=== PATIENT | male | born 1970 | race Hispanic/Latino ===

== ENCOUNTER 2022-01-21 10:11 | Day surgery (SDC) | payer OTHER ==
[2022-01-21] MEDS ORDERED: LACTATED RINGERS 1,000 ML ONE ×2 (10:33→14:15)
[2022-01-21] MEDS ORDERED: ONDANSETRON 4 MG/2 ML INJ IV PRN (10:55)
[2022-01-21] MEDS ORDERED: HYDROmorphone 0.5 MG/0.5 ML INJ IV PRN (10:55)
--- NOTE | 2022-01-21 10:57 | Anesthesia Day of Surgery ---
Anesthesia Day of Surgery - Day of Surgery Patient Examined: Yes Patient H&P Reviewed: Yes Patient is NPO: Yes
--- NOTE | 2022-01-21 10:58 | Anesthesia Consultation ---
Anesthesia Consult and Med Hx Date of service: 01/21/22 - Airway Anesthetic Teeth Evaluation: Chipped ROM Head & Neck: Adequate Mental/Hyoid Distance: Adequate Mallampati Class: Class III Intubation Access Assessment: Possibly Difficult - Pre-Operative Health Status ASA Pre-Surgery Classification: ASA1 Proposed Anesthetic Plan: General - Pulmonary Hx Smoking: No Hx Sleep Apnea: No - Central Nervous System Hx Back Pain: Yes (Mild scoliosis) Hx Psychiatric Problems: No - Gastrointestinal Hx Gastroesophageal Reflux Disease: Yes (Occasional dietary) - Other Systems Hx Alcohol Use: Yes (Occas) Hx Cancer: No
[2022-01-21] MEDS ORDERED: MIDAZOLAM 2 MG/2 ML INJ IV NR (11:00)
[2022-01-21] MEDS ORDERED: LACTATED RINGERS 1,000 ML IV SCH (11:00)
[2022-01-21] MEDS ORDERED: ceFAZolin/Water 2 GM/20 ML 2 GM/20 ML SYRINGE IV ONE (11:54)
[2022-01-21] MEDS ORDERED: ceFAZolin/STERILE WATER 2 GM/20 ML SYRINGE IV NR (12:00)
[2022-01-21] MEDS ORDERED: BUPIVACAINE/PF (0.25%) 2.5 MG/ML 30 ML VIAL INFILTRATI ONE (12:13)
[2022-01-21] MEDS ORDERED: LIDOCAINE (1%) 10 MG/1 ML VIAL 20 ML MDV ONE (12:13)
[2022-01-21] MEDS ORDERED: LIDOCAINE MPF (2%) 20 MG/1 ML VIAL 5 ML ONE (12:19)
[2022-01-21] MEDS ORDERED: propofoL 200 MG/20 ML VIAL IV ONE (12:20)
[2022-01-21] MEDS ORDERED: HYDROmorphone 1 MG/1 ML INJ ONE (12:32)
[2022-01-21] MEDS ORDERED: dexAMETHasone 20 MG/5 ML VIAL ONE (12:45)
[2022-01-21] MEDS ORDERED: SODIUM CHLORIDE 0.9% IRR 1,500 ML BOTTLE IR ONE (14:00)
--- NOTE | 2022-01-21 14:11 | Post Operative Note ---
Date of procedure: 01/21/22 Pre-op diagnosis: bialt hydroceles sterilization Post-op diagnosis: same Findings: fluid bilat Procedure: bilat hydrocelectomy vasectomy Anesthesia: GETA Surgeon: JASMIN NO Estimated blood loss: minimal Pathology: list (sacs vasa) Specimen disposition: to lab Condition: stable Disposition: PACU
--- NOTE | 2022-01-21 14:13 | Discharge Summary ---
Short Stay Discharge Plan Activity: other (no lifting or straining ) Weight Bearing Status: Partial Weight Bearing Diet: low fat, low cholesterol, low salt Wound: open to air Special Instructions: other (ice x 24 hrs ) Follow up with: PRIMARY CARE, [Primary Care Provider] - 7 Days JASMIN NO MD [Staff Physician] - 01/22/22
[2022-01-21] MEDS: HYDROmorphone 0.5 MG/0.5 ML INJ IV PRN ×2 (14:58→15:18)
--- NOTE | 2022-01-21 17:16 | Post Anesthesia Evaluation ---
- Post Anesthesia Evaluation Patient Participated: Yes Airway Patent: Yes Stable Respiratory Function: Yes Nausea/Vomiting: No Temp > 96.8F: Yes Pain Manageable: Yes Adequeate Hydration: Yes Anesthesia Complications: No Block Receding Appropriately: Not Applicable Patient on Ventilator: No
--- NOTE | 2022-01-21 18:07 | Operative Report ---
DATE OF SURGERY: 01/21/2022 PREOPERATIVE DIAGNOSIS: Bilateral hydroceles. POSTOPERATIVE DIAGNOSIS: Bilateral hydroceles. PROCEDURES: Bilateral hydrocelectomies and vasectomy. SURGEON: Dr. Cervantes. ANESTHESIA: General. FINDINGS: This is a gentleman who had a very large hydrocele/spermatocele on right side, now presents for treatment. He wanted bilateral vasectomies that we have consent beforehand. We told him we would attempt to do it at the same time. DESCRIPTION OF PROCEDURE: The patient was brought to the operating room and placed on the operating table. Following induction of anesthesia, placed in supine position, prepped and draped in usual sterile fashion. An oblique incision made over the right hemiscrotum towards the midline. The fascia was thickened and was delivered. Approximately 90 mL of clear fluid was evacuated. The testis was slightly atrophic, approximately 3 cm. Portion of the sac was removed and this was imbricated. Any small bleeders were cauterized or tied as needed. At this point, the vas was easily identified. The cord was not thickened and the vasectomy was carried out. The vas was divided. Specimen sent to pathology and both sides were cauterized and oversewn. On the left side, there was some fluid. We tried to do the vasectomy without opening up any of the tunica but the cord was so thickened. There was also some fluid in the tunica and/or surrounding the testis. We therefore just extended the incision for maybe a half a cm and exposed the testis and evacuated approximately 40 mL of fluid. This was clear. Even was open, the cord was still thickened, we dissected it free, isolated, doubly tied and cauterized and oversewn and the patient tolerated the procedure well. Both testes were placed in anatomical positions. Two 1/4 inch Walt was placed on the left, one on the right were carried out, secured with silk. Fascia was closed with 3-0 chromic, skin with 3-0 chromic. The patient tolerated the procedure well and brought to recovery in stable condition. TID: [id number] RECEIPT: [id number] VALENTINA/ANASTASIA/MONIE
[2022-01-21 19:49] VITALS: BP 126/72
== END 2022-01-21 17:05 | disposition home or self-care (01) ==
LOC: OR 10:11
PROVIDERS: ATTEND Urology
DX: N43.2 Other hydrocele (principal); K21.9 Gastro-esophageal reflux disease without esophagitis; M19.90 Unspecified osteoarthritis, unspecified site; Z98.890 Other specified postprocedural states; Z72.89 Other problems related to lifestyle
CPT/HCPCS: 55041; 55250; 88302; J0690; J1100; J1170; J2405; J2704; J7120; J3490